=== PATIENT | male | born 1945 ===

== ENCOUNTER 2019-04-30 13:26 | Outpatient (CLI) | payer MEDICARE ==
--- NOTE | 2019-04-30 14:23 | ULT ---
BILATERAL CAROTID DUPLEX ULTRASOUND: HISTORY: Carotid stenosis TECHNIQUE: Grayscale, color-flow and spectral Doppler ultrasound imaging of the extracranial carotid artery syst ems was performed bilaterally. FINDINGS: Mild plaque formation. The peak systolic velocity in the right ICA measures 67 cm/s. The peak systolic velocity in the left ICA measures 106 cm/s. Vertebral flow: antegrade, bilaterally. IMPRESSION: No hemodynamically significant stenosis of Both ICAs.
== END 2019-04-30 13:27 | disposition home or self-care (01) ==
LOC: BICULT 13:26
PROVIDERS: ATTEND Family Medicine
DX: I65.23 Occlusion and stenosis of bilateral carotid arteries (principal)
CPT/HCPCS: 93880